=== PATIENT | female | born 1985 | race Caucasian/White ===

== ENCOUNTER 2017-01-04 18:28 | Emergency (ER) | payer BC, MEDICAID ==
[2017-01-04 18:36] VITALS: TEMP 98.3
[2017-01-04] MEDS ORDERED: SODIUM CHLORIDE 0.9% 1,000 ML IV ONE (18:51)
--- NOTE | 2017-01-04 18:58 | ED ---
Female Urogenital HPI - General Chief complaint: Vaginal Bleeding Stated complaint: menstruation x 11 days Time Seen by Provider: 01/04/17 18:43 Source: patient Mode of arrival: ambulatory Limitations: no limitations - History of Present Illness Initial comments: 31-year-old female patient presents to emergency department with chief complaint of heavy menstrual bleeding. Patient states that her period started 11 days ago, states that the bleeding has been heavier than normal. States that his become even heavier over the last 2 days. Patient states that she generally has irregular periods, her last period was at the end of August. States she generally has vaginal bleeding for 7 days when she gets her period. She states that she does have trouble with fertility and did have a miscarriage in the spring. She states that she has also had cramping in her pelvic region and lower back pain with this. He states that today she is feeling lightheaded , and is more weak. She states that she has been changing her tampon every hour. She states she did call her heel edge inker machine Dr. Gilbert who told her to present here for further evaluation. She also reports feeling chilled today. Patient denies any recent rash, fever, shortness breath, chest pain, nausea, vomiting, diarrhea, constipation, numbness, tingling, hematuria, dysuria, urinary urgency, urinary frequency, headache, visual changes, or any other complaints. Last Menstrual Period: 09/26/16 - Related Data Home Medications Medication Instructions Recorded Confirmed Acetaminophen Tab [Tylenol Tab] 650 mg PO Q6H PRN 01/04/17 01/04/17 Previous Rx's Medication Instructions Recorded Acetaminophen-Codeine 300-30mg 1 tab PO Q6H PRN #15 tablet 01/04/17 [Tylenol #3] Allergies Allergy/AdvReac Type Severity Reaction Status Date / Time No Known Allergies Allergy Verified 01/04/17 19:18 Review of Systems ROS Statement: Those systems with pertinent positive or pertinent negative responses have been documented in the HPI. ROS Other: All systems not noted in ROS Statement are negative. Past Medical History Past Medical History: No Reported History Additional Past Medical History / Comment(s): decreased function with gallbladder- gets pain when eatting, History of Any Multi-Drug Resistant Organisms: None Reported Past Surgical History: Hernia Repair Additional Past Surgical History / Comment(s): EGD,colonoscopy, wisdom teeth Past Anesthesia/Blood Transfusion Reactions: No Reported Reaction Past Psychological History: No Psychological Hx Reported Smoking Status: Never smoker Past Alcohol Use History: Rare Past Drug Use History: None Reported - Past Family History Father Family Medical History: No Reported History Mother Family Medical History: No Reported History Grandparents (maternal & paternal) Family Medical History: Cancer General Exam Limitations: no limitations General appearance: alert, in no apparent distress, other (This is a well- developed, well-nourished adult female patient in no acute distress. Vital signs upon presentation are temperature 98.3F, pulse 75, respirations 20, blood pressure 175/75, pulse ox 99% on room air.) ENT exam: Present: normal exam, normal oropharynx, mucous membranes moist Respiratory exam: Present: normal lung sounds bilaterally. Absent: respiratory distress, wheezes, rales, rhonchi, stridor Cardiovascular Exam: Present: regular rate, normal rhythm, normal heart sounds. Absent: systolic murmur, diastolic murmur, rubs, gallop, clicks GI/Abdominal exam: Present: soft, tenderness (Right and left pelvic tenderness.) , normal bowel sounds. Absent: distended, guarding, rebound, rigid External exam: Present: normal external exam. Absent: erythema, swelling, lacerations, ecchymosis Speculum exam: Present: normal speculum exam, vaginal bleeding (Mild vaginal bleeding, dark red blood) By manual exam: Present: adnexal tenderness (Right and left, mild.). Absent: cervical motion tenderness, adnexal mass, uterine enlargement, uterine tenderness Back exam: Present: normal inspection. Absent: CVA tenderness (R), CVA tenderness (L) Neurological exam: Present: alert, oriented X3, CN II-XII intact Psychiatric exam: Present: normal affect, normal mood Skin exam: Present: warm, dry, intact, normal color. Absent: rash Course Vital Signs 01/04/17 01/04/17 01/04/17 18:33 19:48 21:13 Temperature 98.3 F Pulse Rate 75 66 73 Respiratory 20 18 18 Rate Blood Pressure 175/75 139/86 121/69 O2 Sat by Pulse 99 97 97 Oximetry Medical Decision Making - Medical Decision Making 31-year-old female patient presented for evaluation of prolonged menstrual bleeding with increased cramping. Physical exam is unremarkable, pelvic examination did reveal vaginal bleeding, as well as some right adnexal tenderness. Labs were reviewed and were unremarkable. Patient's vital signs are stable here in the department. She was feeling somewhat better after receiving medications here. She'll be discharged home with Tylenol 3 for pain control. She is instructed to follow-up with her heel edge inker machine as soon as possible. She sees Dr. Gilbert. She is instructed to return here immediately for any new, worsening, or concerning symptoms. She verbalizes understanding and agrees with this plan. - Lab Data Result diagrams: 01/04/17 19:00 01/04/17 19:00 Lab Results 01/04/17 01/04/17 01/04/17 Range/Units 18:50 18:50 19:00 WBC 9.5 (3.8-10.6) k/uL RBC 4.89 (3.80-5.40) m/uL Hgb 14.8 (11.4-16.0) gm/dL Hct 44.3 (34.0-46.0) % MCV 90.6 (80.0-100.0) fL MCH 30.3 (25.0-35.0) pg MCHC 33.4 (31.0-37.0) g/dL RDW 12.6 (11.5-15.5) % Plt Count 308 (150-450) k/uL Neutrophils % 51 % Lymphocytes % 37 % Monocytes % 4 % Eosinophils % 5 % Basophils % 0 % Neutrophils # 4.9 (1.3-7.7) k/uL Lymphocytes # 3.5 (1.0-4.8) k/uL Monocytes # 0.4 (0-1.0) k/uL Eosinophils # 0.5 (0-0.7) k/uL Basophils # 0.0 (0-0.2) k/uL PT (9.0-12.0) sec INR (<1.2) APTT (22.0-30.0) sec Sodium (137-145) mmol/L Potassium (3.5-5.1) mmol/L Chloride (98-107) mmol/L Carbon Dioxide (22-30) mmol/L Anion Gap mmol/L BUN (7-17) mg/dL Creatinine (0.52-1.04) mg/dL Est GFR (MDRD) Af Amer (>60 ml/min/1.73 sqM) Est GFR (MDRD) Non-Af (>60 ml/min/1.73 sqM) Glucose (74-99) mg/dL Calcium (8.4-10.2) mg/dL Total Bilirubin (0.2-1.3) mg/dL AST (14-36) U/L ALT (9-52) U/L Alkaline Phosphatase (38-126) U/L Total Protein (6.3-8.2) g/dL Albumin (3.5-5.0) g/dL Urine Color Colorless Urine Appearance Clear (Clear) Urine pH 5.0 (5.0-8.0) Ur Specific [place] 1.005 (1.001-1.035) Urine Protein Negative (Negative) Urine Glucose (UA) Negative (Negative) Urine Ketones Negative (Negative) Urine Blood Small H (Negative) Urine Nitrite Negative (Negative) Urine Bilirubin Negative (Negative) Urine Urobilinogen <2.0 (<2.0) mg/dL Ur Leukocyte Esterase Negative (Negative) Urine RBC <1 (0-5) /hpf Urine WBC <1 (0-5) /hpf Ur Squamous Epith Cells 1 (0-4) /hpf Urine Mucus Rare H (None) /hpf Urine HCG, Qual Not Detected (Not Detectd) 01/04/17 01/04/17 Range/Units 19:00 19:00 WBC (3.8-10.6) k/uL RBC (3.80-5.40) m/uL Hgb (11.4-16.0) gm/dL Hct (34.0-46.0) % MCV (80.0-100.0) fL MCH (25.0-35.0) pg MCHC (31.0-37.0) g/dL RDW (11.5-15.5) % Plt Count (150-450) k/uL Neutrophils % % Lymphocytes % % Monocytes % % Eosinophils % % Basophils % % Neutrophils # (1.3-7.7) k/uL Lymphocytes # (1.0-4.8) k/uL Monocytes # (0-1.0) k/uL Eosinophils # (0-0.7) k/uL Basophils # (0-0.2) k/uL PT 10.2 (9.0-12.0) sec INR 1.0 (<1.2) APTT 25.7 (22.0-30.0) sec Sodium 141 (137-145) mmol/L Potassium 4.0 (3.5-5.1) mmol/L Chloride 106 (98-107) mmol/L Carbon Dioxide 24 (22-30) mmol/L Anion Gap 11 mmol/L BUN 16 (7-17) mg/dL Creatinine 0.70 (0.52-1.04) mg/dL Est GFR (MDRD) Af Amer >60 (>60 ml/min/1.73 sqM) Est GFR (MDRD) Non-Af >60 (>60 ml/min/1.73 sqM) Glucose 86 (74-99) mg/dL Calcium 9.9 (8.4-10.2) mg/dL Total Bilirubin 0.3 (0.2-1.3) mg/dL AST 35 (14-36) U/L ALT 57 H (9-52) U/L Alkaline Phosphatase 131 H (38-126) U/L Total Protein 8.0 (6.3-8.2) g/dL Albumin 4.3 (3.5-5.0) g/dL Urine Color Urine Appearance (Clear) Urine pH (5.0-8.0) Ur Specific [place] (1.001-1.035) Urine Protein (Negative) Urine Glucose (UA) (Negative) Urine Ketones (Negative) Urine Blood (Negative) Urine Nitrite (Negative) Urine Bilirubin (Negative) Urine Urobilinogen (<2.0) mg/dL Ur Leukocyte Esterase (Negative) Urine RBC (0-5) /hpf Urine WBC (0-5) /hpf Ur Squamous Epith Cells (0-4) /hpf Urine Mucus (None) /hpf Urine HCG, Qual (Not Detectd) - Radiology Data Radiology results: report reviewed, image reviewed Trans-abdominal ultrasound report reviewed in its entirety, impression by Dr. Durant shows no significant findings. Hypoechoic focus in the right adnexa is likely a cyst. Follow-up in 2-3 menstrual cycles could be performed performed. Disposition Clinical Impression: Dysfunctional uterine bleeding, Ovarian cyst Disposition: HOME SELF-CARE Condition: Good Instructions: Dysfunctional Uterine Bleeding (ED), Ovarian Cyst (ED) Additional Instructions: Increase fluids. Follow up with the MACHINE ASSISTANT for recheck as soon as possible. Return here immediately for any new, worsening, or concerning symptoms. Prescriptions: Acetaminophen-Codeine 300-30mg [Tylenol #3] 1 tab PO Q6H PRN #15 tablet PRN Reason: Pain Referrals: Kimberlyn Adair III, MD [Primary Care Provider] - 1-2 days Time of Disposition: 21:01
[2017-01-04 19:19] LABS: Appearance,Urine Clear (Clear); Bilirubin,Urine Negative (Negative); Glucose,Urine (UA) Negative (Negative); Ketones,Urine Negative (Negative); Leukocyte Esterase,Urine Negative (Negative); Mucus,Urine Rare /hpf; Nitrite,Urine Negative (Negative); Particle Count 215; Protein,Urine Negative (Negative); RBC,Urine <1 /hpf (0-5); Specific Gravity,Urine 1.005 (1.001-1.035); Squamous Epithelial Cell,Urine 1 /hpf (0-4); UA Billing (MACRO vs. MICRO) MICRO; Urobilinogen,Urine <2.0 mg/dL (<2.0); WBC,Urine <1 /hpf (0-5)
[2017-01-04 19:24] LABS: ALT 57 U/L (9-52); AST 35 U/L (14-36); Alkaline Phosphatase 131 U/L (38-126); Anion Gap 11 mmol/L; Basophils % (A) 0 %; Blood Urea Nitrogen 16 mg/dL (7-17); CH 30.1; CHCM 33.4; Calcium 9.9 mg/dL (8.4-10.2); Carbon Dioxide 24 mmol/L (22-30); Chloride 106 mmol/L (98-107); Eosinophils # (A) 0.5 k/uL (0-0.7); Eosinophils % (A) 5 %; Glucose 86 mg/dL (74-99); HCT 44.3 % (34.0-46.0); HDW 2.62; HGB 14.8 gm/dL (11.4-16.0); Luc # (Auto) 0.25; Luc % (Auto) 3; Lymphocytes # (A) 3.5 k/uL (1.0-4.8); Lymphocytes % (A) 37 %; MCH 30.3 pg (25.0-35.0); MCHC 33.4 g/dL (31.0-37.0); MCV 90.6 fL (80.0-100.0); Mean Platelet Volume 6.9; Monocytes # (A) 0.4 k/uL (0-1.0); Monocytes % (A) 4 %; Neutrophils # (A) 4.9 k/uL (1.3-7.7); Neutrophils % (A) 51 %; Non-African American GFR(MDRD) >60 (>60 ml/min/1.73 sqM); RBC 4.89 m/uL (3.80-5.40); RDW 12.6 % (11.5-15.5); Sodium 141 mmol/L (137-145); Total Bilirubin 0.3 mg/dL (0.2-1.3); WBC 9.5 k/uL (3.8-10.6); WBC (Perox) 8.75
[2017-01-04 19:28] LABS: Partial Thromboplastin Time 25.7 sec (22.0-30.0); Prothrombin Time 10.2 sec (9.0-12.0)
[2017-01-04] MEDS ORDERED: HYDROmorphone 1 MG/ML 1 ML SYRINGE IVP STA (19:32)
[2017-01-04] MEDS ORDERED: KETOROLAC 30 MG/ML 1 ML VIAL IVP STA (19:32)
[2017-01-04] MEDS ORDERED: ONDANSETRON 4 MG/2 ML VIAL IVP STA (19:32)
[2017-01-04 19:49] VITALS: RESP 18
--- NOTE | 2017-01-04 20:51 | US ---
EXAMINATION TYPE: US pelvic complete DATE OF EXAM: 01/04/2017 COMPARISON: NONE CLINICAL HISTORY: Heavy bleeding with lethargy and severe cramping per pt for 11 days. Pt states she has a history of irregular periods and cysts. TECHNIQUE: Transabdominal (TA) Date of LMP: 12/25/2016 EXAM MEASUREMENTS: Uterus: 8.8 x 3.4 x 4.7 cm Endometrial Stripe: 0.5 cm Right Ovary: 5.2 x 3.5 x 3.7 cm Left Ovary: 3.3 x 2.4 x 2.8 cm Limited due to bowel gas. 1. Uterus: Anteverted Appears wnl 2. Endometrium: Appears wnl 3. Right Ovary: Appears to have hypoechoic area measuring approximately 2.9 x 4.0 x 3.[address] Follow up in 2-3 menstrual cycles is recommended if warranted. 4. Left Ovary: Appears wnl Spectral, color and waveform doppler imaging shows good arterial and venous flow within the ovaries ; there is no evidence for ovarian torsion. 5. Bilateral Adnexa: Appear wnl 6. Posterior cul-de-sac: Traces of free fluid IMPRESSION: No significant findings. Hypoechoic focus in the right adnexa is likely a cyst. Follow-up in 2-3 menstrual cycles could be performed if warranted.
[2017-01-04] MEDS ORDERED: ACET/COD 300 MG/30 MG STARTER PACK 6 TAB BTL PO STA (21:04)
[2017-01-04 21:14] VITALS: BP 121/69; PULSE 73
== END 2017-01-04 21:23 | disposition home or self-care (01) ==
LOC: EC 18:28
DX: N93.8 Other specified abnormal uterine and vaginal bleeding (principal); N83.201 Unspecified ovarian cyst, right side; M54.5 Low back pain
CPT/HCPCS: 99284 ×2; 96374 ×2; 96375 ×3; 96361 ×3; 36415; 80053; 85025; 85610; 85730; 81001; 81025; 93975; 76856; J2405; J1885; J1170

== ENCOUNTER → 2017-08-29 | Outpatient (CLI) | payer BC ==
--- NOTE | 2017-08-29 07:44 | MR ---
EXAMINATION TYPE: MR knee LT wo con DATE OF EXAM: 08/29/2017 COMPARISON: NONE HISTORY: Left knee pain TECHNIQUE: Multiplanar, multisequence imaging of the knee is performed without IV contrast. FINDINGS: MEDIAL MENISCUS: Mild increased signals within the posterior horn of the medial meniscus compatible s ome internal derangement. No communication with the articular surface is evident. Anterior horn media l meniscus appears unremarkable. LATERAL MENISCUS: Anterior and posterior horns are intact without tear. CRUCIATE LIGAMENTS: The anterior and posterior cruciate ligaments are intact and unremarkable. COLLATERAL LIGAMENTS: The medial collateral ligament and lateral collateral ligament complex are inta ct and unremarkable. EXTENSOR MECHANISM: Visualized quadriceps and patellar tendons are intact. EFFUSION: No significant suprapatellar joint effusion. POPLITEAL CYST: No popliteal cyst is evident. TRICOMPARTMENT SPACES: Preserved CARTILAGE: Preserved BONE MARROW SIGNAL: No focal abnormal marrow signal is appreciated. OTHER: No additional significant abnormality is appreciated. IMPRESSION: Mild grade 1 internal derangement posterior horn medial meniscus.
== END ==
LOC: RADMRIMAIN 06:40
PROVIDERS: ATTEND Orthopaedic Surgery
DX: M23.92 Unspecified internal derangement of left knee (principal)

== ENCOUNTER 2018-09-15 21:25 | Emergency (ER) | payer BC ==
--- NOTE | 2018-09-15 21:35 | ED ---
Female Urogenital HPI - General Chief complaint: Urogenital Stated complaint: Poss Miscarriage Time Seen by Provider: 09/15/18 21:35 Source: patient, RN notes reviewed, old records reviewed Mode of arrival: ambulatory Limitations: no limitations - History of Present Illness Initial comments: This is a 33-year-old female the ER for evaluation. Patient resents today for evaluation regarding IUP. Patient states she is but has had recent pain and bleeding patient also having mild cramping. No other significant complaints. Patient is a MD Complaint: vaginal bleeding (In ) -: hour(s) Location: suprapubic (Cramping) Radiation: non-radiating, LLQ Severity scale (1-10): 2 Quality: cramping Consistency: constant Improves with: none Worsens with: none Last Menstrual Period: 07/06/18 Patient : No Associated Symptoms: denies other symptoms - Related Data Sexually active: No Home Medications Medication Instructions Recorded Confirmed Multivitamins, Thera [Multivitamin 1 tab PO DAILY 09/15/18 09/15/18 (formulary)] Allergies Allergy/AdvReac Type Severity Reaction Status Date / Time No Known Allergies Allergy Verified 09/15/18 21:41 Review of Systems ROS Statement: Those systems with pertinent positive or pertinent negative responses have been documented in the HPI. ROS Other: All systems not noted in ROS Statement are negative. Past Medical History Past Medical History: No Reported History Additional Past Medical History / Comment(s): decreased function with gallbladder- gets pain when eatting, History of Any Multi-Drug Resistant Organisms: None Reported Past Surgical History: Hernia Repair Additional Past Surgical History / Comment(s): EGD,colonoscopy, wisdom teeth Past Anesthesia/Blood Transfusion Reactions: No Reported Reaction Past Psychological History: No Psychological Hx Reported Smoking Status: Never smoker Past Alcohol Use History: Rare Past Drug Use History: None Reported - Past Family History Father Family Medical History: No Reported History Mother Family Medical History: No Reported History Grandparents (maternal & paternal) Family Medical History: Cancer General Exam Limitations: no limitations General appearance: alert, in no apparent distress Head exam: Present: atraumatic, normocephalic, normal inspection Eye exam: Present: normal appearance, PERRL, EOMI. Absent: scleral icterus, conjunctival injection, periorbital swelling ENT exam: Present: normal exam, mucous membranes moist Neck exam: Present: normal inspection. Absent: tenderness, meningismus, lymphadenopathy Respiratory exam: Present: normal lung sounds bilaterally. Absent: respiratory distress, wheezes, rales, rhonchi, stridor Cardiovascular Exam: Present: regular rate, normal rhythm, normal heart sounds. Absent: systolic murmur, diastolic murmur, rubs, gallop, clicks GI/Abdominal exam: Present: soft, normal bowel sounds. Absent: distended, tenderness, guarding, rebound, rigid Extremities exam: Present: normal inspection, full ROM, normal capillary refill. Absent: tenderness, pedal edema, joint swelling, calf tenderness Back exam: Present: normal inspection Neurological exam: Present: alert, oriented X3, CN II-XII intact Psychiatric exam: Present: normal affect, normal mood Skin exam: Present: warm, dry, intact, normal color. Absent: rash Course Vital Signs 09/15/18 21:29 Temperature 98.0 F Pulse Rate 85 Respiratory 18 Rate Blood Pressure 131/73 O2 Sat by Pulse 100 Oximetry - Reevaluation(s) Reevaluation #1: 09/15/18 23:47 Medical record is reviewed Reevaluation #2: 09/15/18 23:47 Patient discussed regarding symptoms and findings. Questions answered Medical Decision Making - Medical Decision Making 3 female the ER for evaluation of vaginal bleeding in . Patient is significant positive IUP. Can be discharged home - Lab Data Lab Results 09/15/18 09/15/18 09/15/18 Range/Units 22:10 22:10 22:10 HCG, Quant 68335.9 mIU/mL Urine Color Yellow Urine Appearance Clear (Clear) Urine pH 5.0 (5.0-8.0) Ur Specific [place] 1.028 (1.001-1.035) Urine Protein Negative (Negative) Urine Glucose (UA) Negative (Negative) Urine Ketones Negative (Negative) Urine Blood Negative (Negative) Urine Nitrite Negative (Negative) Urine Bilirubin Negative (Negative) Urine Urobilinogen <2.0 (<2.0) mg/dL Ur Leukocyte Esterase Negative (Negative) Urine HCG, Qual Detected (Not Detectd) - Radiology Data Radiology results: report reviewed (Ultrasound shows positive IUP), image reviewed Disposition Clinical Impression: Vaginal bleeding during , Threatened Disposition: HOME SELF-CARE Condition: Good Instructions (If sedation given, give patient instructions): Threatened Miscarriage (ED) Is patient prescribed a controlled substance at d/c from ED?: No Referrals: Kimberlyn Adair III, MD [Primary Care Provider] - 1-2 days
[2018-09-15 22:39] LABS: Appearance,Urine Clear (Clear); Bilirubin,Urine Negative (Negative); Blood,Urine Negative (Negative); Color,Urine Yellow; Glucose,Urine (UA) Negative (Negative); Ketones,Urine Negative (Negative); Leukocyte Esterase,Urine Negative (Negative); Nitrite,Urine Negative (Negative); Protein,Urine Negative (Negative); Specific Gravity,Urine 1.028 (1.001-1.035); Urobilinogen,Urine <2.0 mg/dL (<2.0)
--- NOTE | 2018-09-15 23:27 | US ---
EXAM: US First Trimester, Transabdominal CLINICAL HISTORY: ITS.REASON US Reason: Pain TECHNIQUE: Real-time transabdominal obstetrical ultrasound of the maternal pelvis and a first trimester with image documentation. COMPARISON: None FINDINGS: Uterus: Measures 10.3 x 6.7 x 9.0 cm. Gestational sac identified within the endometrial cavity. Small subchorionic hemorrhage measuring 1.2 x 1. 3 x 1.2 cm. An embryonic pole is identified. [place]-rump length measures 3.01 cm. heart rate 175 bpm. Cervix is long and closed. Ovaries: The right ovary measures 4.0 x 2.7 x 2.7 cm. Exophytic right ovarian versus paraovarian cyst measuring 4.0 x 2.5 x 2.8 cm. The left ovary measures 3.4 x 1.8 x 2.3 cm. The ovaries demonstrate normal color flow. Other: Question minimal complex fluid in the cul-de-sac. No adnexal mass. LMP: 07/01/2018 GA by LMP: 10 weeks 6 days ANA by LMP: 04/07/2019 Average ultrasound age: 9 weeks 6 days ANA by ultrasound: 04/14/2019 IMPRESSION: Single intrauterine with heart rate of 175 bpm. Average ultrasound age of 9 weeks 6 days. Small subchorionic hemorrhage measuring up to 1.3 cm.
[2018-09-16 00:04] VITALS: BP 130/80; PULSE 81; RESP 16; TEMP 98.2
== END 2018-09-16 00:03 | disposition home or self-care (01) ==
LOC: EC 21:25
DX: O20.0 Threatened abortion (principal); Z3A.09 9 weeks gestation of pregnancy
CPT/HCPCS: 36415; 76801; 81003; 81025; 84702; 99284

== ENCOUNTER → 2018-12-25 | Outpatient (CLI) | payer BC ==
--- NOTE | 2018-12-25 19:36 | MR ---
EXAMINATION TYPE: MR knee RT wo con DATE OF EXAM: 12/25/2018 COMPARISON: None HISTORY: Pain in right knee TECHNIQUE: Multiplanar, multisequence imaging of the right knee is performed without IV contrast. FINDINGS: There is increased signal in the large area of the medial femoral condyle on the T2 images in the ant erior aspect. There is a patchy mild area of increased signal in the lateral aspect lateral tibial co ndyle. The collateral ligaments are intact. The anterior and posterior cruciate ligaments are intact. There is mild knee joint effusion. The medial and lateral menisci appear intact. There is no evidenc e of meniscal tear. There is small area of edema in the subchondral patella. This measures 5 mm. IMPRESSION: Small joint effusion. No evidence of ligamentous or meniscal tear. Edema in the medial femoral condyle and lateral tibial condyle consistent with bone bruise. No fractu re line seen.
== END | disposition home or self-care (01) ==
LOC: RADMRIMAIN 18:34
PROVIDERS: ATTEND Orthopaedic Surgery
DX: M25.461 Effusion, right knee (principal)

== ENCOUNTER 2019-02-07 20:47 | Outpatient (CLI) | payer BC ==
[2019-02-07 22:14] VITALS: BP 129/83; PULSE 85; RESP 18; TEMP 98.7
--- NOTE | 2019-03-20 11:15 | P.MSEPDOC ---
Presenting Problems - Arrival Data Date of Arrival on Unit: 02/07/19 Time of Arrival on Unit: 20:47 Mode of Transport: Ambulatory - Complaint OB-Reason for Admission/Chief Complaint: Rule Out PROM Comment: pt presents to triage with complaints of cramping off and on last few days,. wettness in underware that started yesterday evening and continues into today with. multiple changes of underware and achiness in both legs that started about 3 days ago in. hips and now is entire legs with super tight muscles and achiness Medical History - Information : 2 Para: 1 Term: 1 : 0 Abortions: Spontaneous or Elective: 0 Number of Living Children: 1 - Gestational Age Gestational Age by ANA (wks/days): 30 Weeks and 4 Days Review of Systems - Review of Systems Constitutional: No problems Breast: No problems ENT: No problems Cardiovascular: No problems Respiratory: No problems Gastrointestinal: No problems Genitourinary: No problems Musculoskeletal: No problems Neurological: No problems Skin: No problems Vital Signs - Temperature Temperature: 98.7 F - Pulse Right Radial Pulse Rate: 85 Pulse Assessment Method: Automatic Cuff - Respirations Respiratory Rate: 18 Oxygen Delivery Method: Room Air O2 Sat by Pulse Oximetry: 98 - Blood Pressure Right Arm Blood Pressure: 129/83 Blood Pressure Mean: 98 Blood Pressure Source: Automatic Cuff Medical Screen Scoring (Pre) - Cervical Exam Dilation: 0 cm = 0 Membranes: Intact - Uterine Contractions Frequency: N/A Duration: N/A Intensity: N/A - Maternal Vital Signs Maternal Temperature: N/A Maternal Blood Pressure: N/A Signs of Preeclampsia: N/A Maternal Respirations: N/A - Maternal Trauma Maternal Trauma: N/A - Assessment - Baby A Baseline FHR: 145 Heart Rate - NICHD Category: Category I (Normal) = 0 NST: Reactive Position: N/A, Non-vertex & not laboring = 3 Station: N/A - Total Score - Baby A Total Score - Baby A: 3 - Total Score - Baby B Total Score - Baby B: 0 - Total Score - Baby C Total Score - Baby C: 0 - Level of Risk - Baby A Level of Risk - Baby A: N/A - Level of Risk - Baby B Level of Risk - Baby B: Low (0-5) - Level of Risk - Baby C Level of Risk - Baby C: Low (0-5) Physician Notification (Pre) - Physician Notified Physician Notified Date: 02/07/19 Physician Notified Time: 20:40 New Order Received: Yes - Notification Comment Comment: Dr Laboy called with report pts reasons for visit, negative amnisure, Cat 1. fhr, reactive nst maternal vitals wnl, pain 0, cervix closed. pt has appt tomorrow with. Dr Gilbert. Discharge order obtained Disposition - Disposition OB Disposition: Discharge to home Discharge Date: 02/07/19 Discharge Time: 21:45 I agree with the RN Medical Screening Exam: Yes Risk & Benefit of care provided described in d/c instruction: Yes Diagnosis: RELATED CONDITIONS, UNSPECIFIED, THIRD TRIMESTER
== END 2019-02-07 21:45 | disposition home or self-care (01) ==
LOC: FBPOP 20:47
PROVIDERS: ATTEND Obstetrics & Gynecology
DX: O26.93 Pregnancy related conditions, unspecified, third trimester (principal); Z3A.30 30 weeks gestation of pregnancy
CPT/HCPCS: 59025; 99213

== ENCOUNTER → 2019-02-23 | Outpatient (CLI) | payer BC ==
--- NOTE | 2019-02-23 10:40 | US ---
EXAMINATION TYPE: US venous doppler duplex LE DATE OF EXAM: 02/23/2019 10:28 AM COMPARISON: NONE CLINICAL HISTORY: M79.662,Pain in left lower leg M79.661 Pain in rig. Patient is 33 weeks wi th bilateral calf pain and right anterior lower leg pain. SIDE PERFORMED: Bilateral TECHNIQUE: The lower extremity deep venous system is examined utilizing real time linear array sonog papito with graded compression, doppler sonography and color-flow sonography. VESSELS IMAGED: Common Femoral Vein Deep Femoral Vein Greater Saphenous Vein * Femoral Vein Popliteal Vein Small Saphenous Vein * Proximal Calf Veins (* superficial vessels) Right Leg: Negative for DVT Left Leg: Negative for DVT IMPRESSION: No distinct abnormality identified at this time.
== END | disposition home or self-care (01) ==
LOC: RADUSWWP 09:46
PROVIDERS: ATTEND Obstetrics & Gynecology
DX: M79.662 Pain in left lower leg (principal); M79.661 Pain in right lower leg
CPT/HCPCS: 93970

== ENCOUNTER 2019-03-08 15:28 | Outpatient (CLI) | payer BC ==
[2019-03-08 16:45] VITALS: BP 132/69; PULSE 91; RESP 16; TEMP 96.6
--- NOTE | 2019-03-22 10:01 | P.MSEPDOC ---
Presenting Problems - Arrival Data Date of Arrival on Unit: 03/08/19 Time of Arrival on Unit: 15:28 Mode of Transport: Ambulatory - Complaint OB-Reason for Admission/Chief Complaint: Possible Onset of Labor, Decreased Movement Medical History - Information : 2 Para: 1 Term: 1 : 0 Abortions: Spontaneous or Elective: 0 Number of Living Children: 1 - Gestational Age Gestational Age by ANA (wks/days): 35 Weeks and 5 Days Review of Systems - Review of Systems Constitutional: No problems Breast: No problems ENT: No problems Cardiovascular: No problems Respiratory: No problems Gastrointestinal: No problems Genitourinary: No problems Musculoskeletal: No problems Neurological: No problems Skin: No problems Vital Signs - Temperature Temperature: 96.6 F Temperature Source: Temporal Artery Scan - Pulse Right Sitting Pulse Rate: 91 Pulse Assessment Method: Automatic Cuff - Respirations Respiratory Rate: 16 Oxygen Delivery Method: Room Air - Blood Pressure Right Arm Blood Pressure: 132/69 Blood Pressure Mean: 90 Blood Pressure Source: Automatic Cuff Medical Screen Scoring (Pre) - Cervical Exam Dilation: 1-3 cm = 1 Membranes: Intact - Uterine Contractions Frequency: N/A Duration: N/A Intensity: N/A - Maternal Vital Signs Maternal Temperature: N/A Maternal Blood Pressure: N/A Signs of Preeclampsia: N/A Maternal Respirations: N/A - Maternal Trauma Maternal Trauma: N/A - Assessment - Baby A Baseline FHR: 140 Heart Rate - NICHD Category: Category I (Normal) = 0 NST: Reactive Position: N/A Station: N/A - Total Score - Baby A Total Score - Baby A: 1 - Total Score - Baby B Total Score - Baby B: 1 - Total Score - Baby C Total Score - Baby C: 1 - Level of Risk - Baby A Level of Risk - Baby A: Low (0-5) - Level of Risk - Baby B Level of Risk - Baby B: Low (0-5) - Level of Risk - Baby C Level of Risk - Baby C: Low (0-5) Physician Notification (Pre) - Physician Notified Physician Notified Date: 03/08/19 Physician Notified Time: 16:26 New Order Received: Yes (d/c home) Disposition - Disposition OB Disposition: Discharge to home Discharge Date: 03/08/19 Discharge Time: 16:30 I agree with the RN Medical Screening Exam: Yes Risk & Benefit of care provided described in d/c instruction: Yes Diagnosis: DECREASED MOVEMENTS, THIRD TRIMESTER, UNSP
== END 2019-03-08 16:30 | disposition home or self-care (01) ==
LOC: FBPOP 15:28
PROVIDERS: ATTEND Obstetrics & Gynecology
DX: O36.8190 Decreased fetal movements, unspecified trimester, not applicable or unspecified (principal); Z3A.36 36 weeks gestation of pregnancy
CPT/HCPCS: 59025; 84112; 99213

== ENCOUNTER 2019-03-15 11:44 | Outpatient (CLI) | payer BC ==
[2019-03-15 13:57] VITALS: BP 135/78; PULSE 88; RESP 16; TEMP 96.8
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
== END 2019-03-15 13:40 | disposition home or self-care (01) ==
LOC: FBPOP 11:44
PROVIDERS: ATTEND Obstetrics & Gynecology
DX: O26.893 Other specified pregnancy related conditions, third trimester (principal)
CPT/HCPCS: 59025; 84112; 99213

== ENCOUNTER 2020-02-16 19:22 | Emergency (ER) | payer BC ==
[2020-02-16] MEDS ORDERED: IPRATROPIUM-ALBUTEROL 3 ML NEB INHALATION STA (22:06)
--- NOTE | 2020-02-16 22:20 | ED ---
General Adult HPI - General Chief complaint: Chest Pain Stated complaint: + covid,heavy chest Time Seen by Provider: 02/16/20 21:29 Source: patient Mode of arrival: ambulatory Limitations: no limitations - History of Present Illness Initial comments: 34-year-old female patient presents to the emergency department today for evaluation of chest heaviness. Patient states that she was diagnosed with COVID-19 on Friday. States that she started having symptoms including fever and nausea since Friday. She states that today she started to experience chest h eaviness. She denies any cough or shortness of breath. States her fever broke today. Denies history of smoking. Patient denies any recent rash, abdominal pain, nausea, vomiting, diarrhea, constipation, back pain, numbness, tingling, dizziness, weakness, hematuria, dysuria, urinary urgency, urinary frequency, headache, visual changes, or any other complaints. - Related Data Home Medications Medication Instructions Recorded Confirmed Multivitamins, Thera [Multivitamin 1 tab PO DAILY 09/15/18 02/16/20 (formulary)] Previous Rx's Medication Instructions Recorded Albuterol Sulfate [Proair Hfa] 1 - 2 puff INHALATION Q6HR PRN #1 02/16/20 inhaler Allergies Allergy/AdvReac Type Severity Reaction Status Date / Time No Known Allergies Allergy Verified 02/16/20 23:06 Review of Systems ROS Statement: Those systems with pertinent positive or pertinent negative responses have been documented in the HPI. ROS Other: All systems not noted in ROS Statement are negative. Past Medical History Past Medical History: No Reported History Additional Past Medical History / Comment(s): decreased function with gallbladder- gets pain when eatting, knee pain History of Any Multi-Drug Resistant Organisms: None Reported Past Surgical History: Hernia Repair Additional Past Surgical History / Comment(s): EGD,colonoscopy, wisdom teeth Past Anesthesia/Blood Transfusion Reactions: No Reported Reaction Past Psychological History: No Psychological Hx Reported Smoking Status: Never smoker Past Alcohol Use History: Rare Past Drug Use History: None Reported - Past Family History Father Family Medical History: No Reported History Mother Family Medical History: No Reported History Grandparents (maternal & paternal) Family Medical History: Cancer General Exam Limitations: no limitations General appearance: alert, in no apparent distress, other (This is a well- developed, well-nourished adult female patient in no acute distress. Vital signs upon presentation are temperature 97.6F, pulse 88, respirations 24, blood pressure 165/91, pulse ox 100% on room air.) Eye exam: Present: normal appearance, PERRL, EOMI. Absent: scleral icterus, conjunctival injection, periorbital swelling ENT exam: Present: normal exam, normal oropharynx, mucous membranes moist Respiratory exam: Present: normal lung sounds bilaterally. Absent: respiratory distress, wheezes, rales, rhonchi, stridor Cardiovascular Exam: Present: regular rate, normal rhythm, normal heart sounds. Absent: systolic murmur, diastolic murmur, rubs, gallop, clicks Neurological exam: Present: alert, oriented X3, CN II-XII intact Psychiatric exam: Present: normal affect, normal mood Skin exam: Present: warm, dry, intact, normal color. Absent: rash Course Vital Signs 02/16/20 02/16/20 02/16/20 19:25 22:00 22:20 Temperature 97.6 F Pulse Rate 88 65 72 Respiratory 24 18 18 Rate Blood Pressure 165/91 157/86 O2 Sat by Pulse 100 99 Oximetry 02/16/20 02/16/20 22:26 23:25 Temperature 98.9 F Pulse Rate 74 70 Respiratory 18 18 Rate Blood Pressure 146/93 O2 Sat by Pulse 97 Oximetry Medical Decision Making - Medical Decision Making 34-year-old female patient recently diagnosed with COVID-19 presents to the emergency department today for evaluation of chest heaviness. Physical examination is unremarkable. Lungs are clear to auscultation with good air movement. Vital signs are within normal ranges oxygen saturation is 99% on room air. She denies shortness of breath or cough. Chest x-ray was obtained and was negative. I did discuss findings and results with the patient. She did receive a DuoNeb treatment here and states it did seem to improve her symptoms. She'll be discharged with a prescription for pro-air. She is instructed to follow-up with her primary care physician for recheck in 1-2 days. Return parameters discussed in detail. She verbalizes understanding and agrees with this plan. - Radiology Data Radiology results: report reviewed, image reviewed 1 year x-ray of the chest is obtained. Report was reviewed in its entirety. Impression by Dr. Ferrell shows normal chest. Disposition Clinical Impression: Chest heaviness, COVID-19 Disposition: HOME SELF-CARE Condition: Good Instructions (If sedation given, give patient instructions): Chest Pain (ED), Viral Syndrome (ED) Additional Instructions: Use inhaler as directed. Follow-up with your primary care physician for recheck in 1-2 days. Return to the emergency department immediately for any new, worsening, or concerning symptoms. Prescriptions: Albuterol Sulfate [Proair Hfa] 1 - 2 puff INHALATION Q6HR PRN #1 inhaler PRN Reason: Shortness Of Breath Is patient prescribed a controlled substance at d/c from ED?: No Referrals: Kimberlyn Adair III, MD [Primary Care Provider] - 1-2 days Time of Disposition: 23:10
[2020-02-16 22:21] VITALS: RESP 18
--- NOTE | 2020-02-16 22:37 | XR ---
EXAMINATION TYPE: XR chest 1V portable DATE OF EXAM: 02/16/2020 COMPARISON: NONE HISTORY: Short of breath TECHNIQUE: FINDINGS: Heart and mediastinum are normal. Lungs are clear. Diaphragm is normal. Bony thorax appears normal. IMPRESSION: Normal chest.
[2020-02-16 23:28] VITALS: BP 146/93; PULSE 70; TEMP 98.9
== END 2020-02-16 23:27 | disposition home or self-care (01) ==
LOC: EC 19:22
DX: U07.1 COVID-19 (principal)
CPT/HCPCS: 71045; 93005; 94640; 99285

== ENCOUNTER 2020-12-01 16:33 | Observation (INO) | payer BC ==
[2020-12-01 19:35] LABS: Basophils # (A) 0.1 k/uL (0-0.2); Basophils % (A) 0 %; Eosinophils # (A) 1.7 k/uL (0-0.7); Eosinophils % (A) 10 %; HCT 39.8 % (34.0-46.0); HGB 13.3 gm/dL (11.4-16.0); Lymphocytes # (A) 2.7 k/uL (1.0-4.8); Lymphocytes % (A) 16 %; MCH 30.1 pg (25.0-35.0); MCHC 33.4 g/dL (31.0-37.0); Monocytes # (A) 0.5 k/uL (0-1.0); Monocytes % (A) 3 %; Neutrophils # (A) 12.1 k/uL (1.3-7.7); Neutrophils % (A) 70 %; Platelet Count 482 k/uL (150-450); RBC 4.43 m/uL (3.80-5.40); RDW 13.1 % (11.5-15.5); WBC 17.3 k/uL (3.8-10.6)
[2020-12-01 19:44] LABS: ALT 19 U/L (4-34); AST 20 U/L (14-36); African American GFR (CKD) >90 (>60 ml/min/1.73 sqM); Albumin 3.9 g/dL (3.5-5.0); Alkaline Phosphatase 126 U/L (38-126); Anion Gap 9 mmol/L; Blood Urea Nitrogen 12 mg/dL (7-17); Calcium 9.3 mg/dL (8.4-10.2); Carbon Dioxide 27 mmol/L (22-30); Chloride 102 mmol/L (98-107); Glucose 111 mg/dL (74-99); Non-African American GFR(CKD) >90 (>60 ml/min/1.73 sqM); Potassium 4.1 mmol/L (3.5-5.1); Sodium 138 mmol/L (137-145); Total Bilirubin 0.2 mg/dL (0.2-1.3); Total Protein 7.1 g/dL (6.3-8.2)
[2020-12-01] MEDS ORDERED: RX INFO: IV CONTRAST WAS GIVEN 1 EACH MISC MISCELLANE PRN (20:05)
--- NOTE | 2020-12-01 20:50 | CT ---
EXAMINATION TYPE: CT chest w con DATE OF EXAM: 12/01/2020 COMPARISON: None HISTORY: Cough CT DLP: mGycm Automated exposure control for dose reduction was used. CONTRAST: Performed , patient injected with mL of . The contrast was Isovue 100 mL. There are patchy areas of infiltrate in both lungs. These are coalescent infiltrates that measure up to 3 cm. There is a 6.5 x 3 cm patch of consolidation at the right posterior lung base. I see no cavi tation. There is no mediastinal adenopathy. There is no pleural effusion. There is no pericardial effusion. H eart size is normal. There are no hilar masses. IMPRESSION: Bilateral patchy areas of airspace infiltrate. This is likely related to infectious disease. No cavit ation seen. Also consider septic emboli.
--- NOTE | 2020-12-01 22:41 | ED ---
General Adult HPI - General Chief complaint: Upper Respiratory Infection Stated complaint: lung mass, respiratory Time Seen by Provider: 12/01/20 18:10 Source: patient Mode of arrival: ambulatory Limitations: no limitations - History of Present Illness Initial comments: 35-year-old previously healthy female presents emergency room with reported abnormal chest x-ray. Patient states that she's had a cough for 3 weeks. She has been using Mucinex and Delsym at home without improvement. She went to the urgent care today where chest x-ray was performed. They told her that she had masses on her lungs and therefore needed to come into the emergency room for a CAT scan. She denies productive cough. No history of intravenous drug use. Denies history of endocarditis ot myocarditis. She denies shortness of breath. No chest pain. No fevers or chills. No sick contacts of similar symptoms. Did have Covid back in January. No concern for . No other alleviating, precipitating or modifying factors - Related Data Home Medications Medication Instructions Recorded Confirmed Multivitamins, Thera [Multivitamin 1 tab PO DAILY 09/15/18 12/01/20 (formulary)] guaiFENesin [Mucinex] 600 mg PO BID 12/01/20 12/01/20 Allergies Allergy/AdvReac Type Severity Reaction Status Date / Time No Known Allergies Allergy Verified 12/01/20 22:36 Review of Systems ROS Statement: Those systems with pertinent positive or pertinent negative responses have been documented in the HPI. ROS Other: All systems not noted in ROS Statement are negative. Past Medical History Past Medical History: No Reported History Additional Past Medical History / Comment(s): decreased function with gallbladder- gets pain when eatting, knee pain History of Any Multi-Drug Resistant Organisms: None Reported Past Surgical History: Hernia Repair Additional Past Surgical History / Comment(s): EGD,colonoscopy, wisdom teeth Past Anesthesia/Blood Transfusion Reactions: No Reported Reaction Past Psychological History: No Psychological Hx Reported Smoking Status: Never smoker Past Alcohol Use History: Rare Past Drug Use History: None Reported - Past Family History Father Family Medical History: No Reported History Mother Family Medical History: No Reported History Grandparents (maternal & paternal) Family Medical History: Cancer General Exam Limitations: no limitations General appearance: alert, in no apparent distress Head exam: Present: atraumatic, normocephalic, normal inspection Eye exam: Present: normal appearance, PERRL, EOMI. Absent: scleral icterus, conjunctival injection, periorbital swelling ENT exam: Present: normal exam, mucous membranes moist Neck exam: Present: normal inspection. Absent: tenderness, meningismus, lymphadenopathy Respiratory exam: Present: normal lung sounds bilaterally, other (frequent bronchospasm). Absent: respiratory distress, wheezes, rales, rhonchi, stridor Cardiovascular Exam: Present: regular rate, normal rhythm, normal heart sounds. Absent: systolic murmur, diastolic murmur, rubs, gallop, clicks GI/Abdominal exam: Present: soft, normal bowel sounds. Absent: distended, tenderness, guarding, rebound, rigid Extremities exam: Present: normal inspection, full ROM, normal capillary refill. Absent: tenderness, pedal edema, joint swelling, calf tenderness Back exam: Present: normal inspection Neurological exam: Present: alert, oriented X3, CN II-XII intact Psychiatric exam: Present: normal affect, normal mood Skin exam: Present: warm, dry, intact, normal color. Absent: rash Course Vital Signs 12/01/20 12/01/20 12/01/20 18:10 19:33 22:17 Temperature 97.9 F 98.6 F Pulse Rate 91 86 Respiratory 22 18 18 Rate Blood Pressure 154/94 146/83 O2 Sat by Pulse 99 97 Oximetry EKG Findings - EKG Comments: EKG Findings:: EKG demonstrates a normal sinus rhythm with a ventricular rate of 82. PA interval 144. QRS 76. QTC of 457. No acute ST segment elevations or depressions concerning for ischemic changes Medical Decision Making - Medical Decision Making Upon arrival patient is placed in the hallway . Thorough history and physical exam was performed. Laboratory studies were conducted. White count is 17.3. CT of the patient's chest is performed with contrast which demonstrates bilateral patchy airspace infiltrate. Consider septic emboli. Due to patient's elevated white count and abnormal CT results blood cultures are obtained and the patient is initiated on cefepime and Vanco. Recommend hospitalization for pulmonology consultation for which the patient did agree to. Spoke with Wilma from [facility] who agreed to admit the patient. Patient taken to the floor in stable condition. - Lab Data Result diagrams: 12/02/20 06:04 12/02/20 06:04 Lab Results 0912/01/20 12/01/20 Range/Units 19:23 19:23 23:49 WBC 17.3 H (3.8-10.6) k/uL RBC 4.43 (3.80-5.40) m/uL Hgb 13.3 (11.4-16.0) gm/dL Hct 39.8 (34.0-46.0) % MCV 90.0 (80.0-100.0) fL MCH 30.1 (25.0-35.0) pg MCHC 33.4 (31.0-37.0) g/dL RDW 13.1 (11.5-15.5) % Plt Count 482 H (150-450) k/uL MPV 7.0 Neutrophils % 70 % Lymphocytes % 16 % Monocytes % 3 % Eosinophils % 10 % Basophils % 0 % Neutrophils # 12.1 H (1.3-7.7) k/uL Lymphocytes # 2.7 (1.0-4.8) k/uL Monocytes # 0.5 (0-1.0) k/uL Eosinophils # 1.7 H (0-0.7) k/uL Basophils # 0.1 (0-0.2) k/uL Sodium 138 (137-145) mmol/L Potassium 4.1 (3.5-5.1) mmol/L Chloride 102 (98-107) mmol/L Carbon Dioxide 27 (22-30) mmol/L Anion Gap 9 mmol/L BUN 12 (7-17) mg/dL Creatinine 0.56 (0.52-1.04) mg/dL Est GFR (CKD-EPI)AfAm >90 (>60 ml/min/1.73 sqM) Est GFR (CKD-EPI)NonAf >90 (>60 ml/min/1.73 sqM) Glucose 111 H (74-99) mg/dL Calcium 9.3 (8.4-10.2) mg/dL Total Bilirubin 0.2 (0.2-1.3) mg/dL AST 20 (14-36) U/L ALT 19 (4-34) U/L Alkaline Phosphatase 126 (38-126) U/L Troponin I <0.012 (0.000-0.034) ng/mL C-Reactive Protein (<1.0) mg/dL Total Protein 7.1 (6.3-8.2) g/dL Albumin 3.9 (3.5-5.0) g/dL Urine HCG, Qual (Not Detectd) Coronavirus (PCR) (Not Detectd) 12/01/20 12/01/20 12/01/20 Range/Units 23:49 23:49 23:49 WBC (3.8-10.6) k/uL RBC (3.80-5.40) m/uL Hgb (11.4-16.0) gm/dL Hct (34.0-46.0) % MCV (80.0-100.0) fL MCH (25.0-35.0) pg MCHC (31.0-37.0) g/dL RDW (11.5-15.5) % Plt Count (150-450) k/uL MPV Neutrophils % % Lymphocytes % % Monocytes % % Eosinophils % % Basophils % % Neutrophils # (1.3-7.7) k/uL Lymphocytes # (1.0-4.8) k/uL Monocytes # (0-1.0) k/uL Eosinophils # (0-0.7) k/uL Basophils # (0-0.2) k/uL Sodium (137-145) mmol/L Potassium (3.5-5.1) mmol/L Chloride (98-107) mmol/L Carbon Dioxide (22-30) mmol/L Anion Gap mmol/L BUN (7-17) mg/dL Creatinine (0.52-1.04) mg/dL Est GFR (CKD-EPI)AfAm (>60 ml/min/1.73 sqM) Est GFR (CKD-EPI)NonAf (>60 ml/min/1.73 sqM) Glucose (74-99) mg/dL Calcium (8.4-10.2) mg/dL Total Bilirubin (0.2-1.3) mg/dL AST (14-36) U/L ALT (4-34) U/L Alkaline Phosphatase (38-126) U/L Troponin I (0.000-0.034) ng/mL C-Reactive Protein 14.6 H (<1.0) mg/dL Total Protein (6.3-8.2) g/dL Albumin (3.5-5.0) g/dL Urine HCG, Qual Not Detected (Not Detectd) Coronavirus (PCR) Not Detected (Not Detectd) 12/02/20 12/02/20 Range/Units 06:04 06:04 WBC 12.7 H (3.8-10.6) k/uL RBC 4.46 (3.80-5.40) m/uL Hgb 13.4 (11.4-16.0) gm/dL Hct 40.5 (34.0-46.0) % MCV 90.6 (80.0-100.0) fL MCH 30.0 (25.0-35.0) pg MCHC 33.0 (31.0-37.0) g/dL RDW 13.2 (11.5-15.5) % Plt Count 506 H (150-450) k/uL MPV 7.1 Neutrophils % 60 % Lymphocytes % 24 % Monocytes % 4 % Eosinophils % 10 % Basophils % 0 % Neutrophils # 7.6 (1.3-7.7) k/uL Lymphocytes # 3.1 (1.0-4.8) k/uL Monocytes # 0.5 (0-1.0) k/uL Eosinophils # 1.3 H (0-0.7) k/uL Basophils # 0.0 (0-0.2) k/uL Sodium 141 (137-145) mmol/L Potassium 4.3 (3.5-5.1) mmol/L Chloride 105 (98-107) mmol/L Carbon Dioxide 27 (22-30) mmol/L Anion Gap 9 mmol/L BUN 10 (7-17) mg/dL Creatinine 0.57 (0.52-1.04) mg/dL Est GFR (CKD-EPI)AfAm >90 (>60 ml/min/1.73 sqM) Est GFR (CKD-EPI)NonAf >90 (>60 ml/min/1.73 sqM) Glucose 99 (74-99) mg/dL Calcium 9.5 (8.4-10.2) mg/dL Total Bilirubin (0.2-1.3) mg/dL AST (14-36) U/L ALT (4-34) U/L Alkaline Phosphatase (38-126) U/L Troponin I (0.000-0.034) ng/mL C-Reactive Protein (<1.0) mg/dL Total Protein (6.3-8.2) g/dL Albumin (3.5-5.0) g/dL Urine HCG, Qual (Not Detectd) Coronavirus (PCR) (Not Detectd) Disposition Clinical Impression: Lung mass, Cough, CAP (community acquired pneumonia) Disposition: ADMITTED IP TO THIS [facility] Condition: Stable Is patient prescribed a controlled substance at d/c from ED?: No Decision to Admit Reason: Admit from EC Decision Date: 12/01/20 Decision Time: 22:41
[2020-12-01] MEDS ORDERED: NALOXONE 0.4 MG/ML 1 ML VIAL IV PRN (22:42)
[2020-12-01] MEDS ORDERED: IBUPROFEN 400 MG TAB PO PRN (22:48)
[2020-12-01] MEDS ORDERED: CEFEPIME 2 GM in SODIUM CHLORIDE 0.9% 100 ML IVPB STA (23:01)
[2020-12-01] MEDS ORDERED: VANCOMYCIN IV PER PHARMACY 1 EACH MISC MISCELLANE PRN (23:01)
[2020-12-02] MEDS ORDERED: VANCOMYCIN 1,750 MG in SODIUM CHLORIDE 0.9% 500 ML 500 ML IVPB ONE ×2
[2020-12-02] MEDS: ACETAMINOPHEN TAB 325 MG TAB PO PRN ×2 (01:37→09:33)
[2020-12-02] MEDS ORDERED: diphenhydrAMINE 25 MG CAP PO STA (06:19)
[2020-12-02 06:54] LABS: Basophils % (A) 0 %; Eosinophils # (A) 1.3 k/uL (0-0.7); Eosinophils % (A) 10 %; HCT 40.5 % (34.0-46.0); HGB 13.4 gm/dL (11.4-16.0); Lymphocytes # (A) 3.1 k/uL (1.0-4.8); Lymphocytes % (A) 24 %; MCV 90.6 fL (80.0-100.0); Mean Platelet Volume 7.1; Monocytes # (A) 0.5 k/uL (0-1.0); Monocytes % (A) 4 %; Neutrophils # (A) 7.6 k/uL (1.3-7.7); Neutrophils % (A) 60 %; Platelet Count 506 k/uL (150-450); RBC 4.46 m/uL (3.80-5.40); RDW 13.2 % (11.5-15.5); WBC 12.7 k/uL (3.8-10.6)
[2020-12-02 07:06] LABS: African American GFR (CKD) >90 (>60 ml/min/1.73 sqM); Anion Gap 9 mmol/L; Blood Urea Nitrogen 10 mg/dL (7-17); Calcium 9.5 mg/dL (8.4-10.2); Carbon Dioxide 27 mmol/L (22-30); Chloride 105 mmol/L (98-107); Glucose 99 mg/dL (74-99); Non-African American GFR(CKD) >90 (>60 ml/min/1.73 sqM); Potassium 4.3 mmol/L (3.5-5.1); Sodium 141 mmol/L (137-145)
[2020-12-02] MEDS ORDERED: VANCOMYCIN 1,500 MG in SODIUM CHLORIDE 0.9% 250 ML IVPB SCH (10:00)
[2020-12-02] MEDS: BENZONATATE 100 MG CAP PO SCH ×3 (11:28→21:30)
[2020-12-02] MEDS: AZITHROMYCIN 500 MG TAB PO SCH (11:28)
--- NOTE | 2020-12-02 13:04 | P.CNPUL ---
History of Present Illness Consult date: 12/02/20 Requesting physician: Alissa Karimi Reason for consult: dyspnea, abnormal CXR/CT Chief complaint: Shortness of breath, cough, congestion History of present illness: This is a very pleasant 35-year-old female patient who follows with Dr. Adair is as her primary care provider. She has no significant medical history. Nonsmoker. Denies any drug use. Proximally 3 weeks ago she started with a dry nonproductive cough. She been trying [id number] Mucinex and Delsym at home without much improvement. She was having episodes of generalized weakness, fatigue and worsening shortness of breath and presented to an urgent care yesterday. Chest x-ray was abnormal and they referred her to the emergency room. Computed tomography scan of the chest was performed and did reveal bilateral patchy areas of airspace disease. Most likely infectious however septic emboli was within the differential. There are coalescent infiltrates that measured up to 3 cm. There is a 6.5 x 3 cm patch of consolidation the right posterior lung base. No cavitation. White count 12.7. Hemoglobin 13.4. Platelets 506. Sodium 141. Potassium 4.3. Bicarb 27. Creatinine 0.57. Urine hCG not detected. Quiñones virus not detected. She has been afebrile. Maintaining good O2 saturations in the upper 90s on room air. She had been initiated on vancomycin and cefepime. She is seen today in consultation on the regular medical floor. She is currently resting comfortably in bed. Awake and alert in no acute distress. Still with a dry nonproductive cough. No fever or chills. No hemoptysis. Review of Systems REVIEW OF SYSTEMS: CONSTITUTIONAL: Generalized weakness, fatigue. Denies any recent significant weight loss or weight gain. EYES: Denies change in vision. EARS, NOSE, MOUTH, THROAT: Denies headaches, denies sore throat. CARDIOVASCULAR: Denies chest pain, palpitations or syncopal episodes. RESPIRATORY: Positive for shortness of breath, cough, congestion no hemoptysis. GASTROINTESTINAL: Denies change in appetite, denies abdominal pain GENITOURINARY: Denies hematuria, denies infections. MUSKULOSKELETAL: Denies pain, denies swelling. INTEGUMENTARY: Denies rash, denies eczema. NEUROLOGICAL: Denies recent memory loss, no recent seizure activity. PSYCHIATRIC: Denies anxiety, denies depression. HEMATOLOGIC/LYMPHATIC: Denies anemia, denies enlarged lymph nodes. Past Medical History Past Medical History: No Reported History Additional Past Medical History / Comment(s): decreased function with gall bladder- gets pain when eatting, knee pain History of Any Multi-Drug Resistant Organisms: None Reported Past Surgical History: Hernia Repair Additional Past Surgical History / Comment(s): EGD,colonoscopy, wisdom teeth Past Anesthesia/Blood Transfusion Reactions: No Reported Reaction Past Psychological History: No Psychological Hx Reported Smoking Status: Never smoker Past Alcohol Use History: Rare Past Drug Use History: None Reported - Past Family History Father Family Medical History: No Reported History Mother Family Medical History: No Reported History Grandparents (maternal & paternal) Family Medical History: Cancer Medications and Allergies Home Medications Medication Instructions Recorded Confirmed Type Multivitamins, Thera [Multivitamin 1 tab PO DAILY 09/15/18 12/01/20 History (formulary)] guaiFENesin [Mucinex] 600 mg PO BID 12/01/20 12/01/20 History Allergies Allergy/AdvReac Type Severity Reaction Status Date / Time No Known Allergies Allergy Verified 12/01/20 22:36 Physical Exam Vitals: Vital Signs Temp Pulse Pulse Resp BP BP Pulse Ox 12/02/20 08:00 72 17 12/02/20 07:00 98.2 F 72 17 127/74 98 12/02/20 02:00 16 12/02/20 00:35 98.7 F 86 16 120/73 99 12/01/20 22:17 98.6 F 86 18 146/83 97 12/01/20 19:33 18 12/01/20 18:10 97.9 F 91 22 154/94 99 Intake and Output 12/01/20 12/02/20 12/02/20 22:59 06:59 14:59 Other: Weight 86.183 kg 86.183 kg GENERAL EXAM: Alert, very pleasant 35-year-old female patient, on room air, fairly comfortable in no apparent distress. HEAD: Normocephalic. EYES: Normal reaction of pupils, equal size. NOSE: Clear with pink turbinates. THROAT: No erythema or exudates. NECK: No masses, no JVD. CHEST: No chest wall deformity. LUNGS: Equal air entry with bilateral scattered rhonchi. CVS: S1 and S2 normal with no audible murmur, regular rhythm. ABDOMEN: No hepatosplenomegaly, normal bowel sounds, no guarding or rigidity. SPINE: No scoliosis or deformity SKIN: No rashes CENTRAL NERVOUS SYSTEM: No focal deficits, tone is normal in all 4 extremities. EXTREMITIES: There is no peripheral edema. No clubbing, no cyanosis. Peripheral pulses are intact. Results - Laboratory Findings CBC and BMP: 12/02/20 06:04 12/02/20 06:04 Abnormal lab findings: Abnormal Labs 12/01/20 12/01/20 12/01/20 19:23 19:23 23:49 WBC 17.3 H Plt Count 482 H Neutrophils # 12.1 H Eosinophils # 1.7 H Glucose 111 H C-Reactive Protein 14.6 H 12/02/20 06:04 WBC 12.7 H Plt Count 506 H Neutrophils # Eosinophils # 1.3 H Glucose C-Reactive Protein - Diagnostic Findings CT scan - chest: image reviewed Assessment and Plan Assessment: 1 Acute community-acquired bilateral pneumonia, COVID-19 screen negative 2 Leukocytosis secondary to above Plan: The patient was seen and evaluated by Dr. Lee CAT scan and labs reviewed Discontinue vancomycin and cefepime Add Rocephin and azithromycin Check pro calcitonin Legionella urine antigen screen Add Chantelle Garcia Follow-up chest x-ray in a.m. We will continue to follow and make further recommendations based on her clinical status I, the cosigning physician, performed a history & physical examination of the patient. Lungs sounds with bilateral rhonchi. Maintaining good O2 saturations in the 90s on room air. I discussed the assessment and plan of care with my nurse practitioner, Megha Shabazz. I attest to the above consultation as dictated by her. Time with Patient: Greater than 30
[2020-12-02] MEDS ORDERED: ALPRAZolam 0.25 MG TAB PO PRN (16:46)
[2020-12-02] MEDS: ALBUTEROL NEBULIZED 2.5 MG/3 ML INHALATION SCH (19:30)
--- NOTE | 2020-12-02 19:46 | HP ---
HISTORY AND PHYSICAL CHIEF COMPLAINTS: Shortness of breath and possible pneumonia. HISTORY OF PRESENT ILLNESS: This 35-year-old woman with a past medical history of multiple medical problems including history of gallbladder dysfunction, history of EGD, colonoscopy, being followed by Dr. Adair in the outpatient setting. The patient apparently had Covid infection pneumonia in February last year. The patient improved significantly, but for the past several days the patient had a cough and some sputum. The patient was taking Mucinex and Delsym at home without any improvement. Patient came to [facility] and found to have bilateral pneumonia which is confirmed by CT scan of the chest, admitted for further evaluation and treatment. Patient started on broad spectrum IV antibiotics and Rocephin and Zithromax. Cultures are pending at this time. The lab work showed white count 17.3 and C-reactive protein is 14.6. D-dimer is not available. Covid 19 repeat testing was negative on multiple occasions according to her. There is no history of fever, rigors or chills at this time. PAST MEDICAL HISTORY: History of recent Covid 19 infection, gallbladder dysfunction, history of knee pains. MEDICATIONS: Home medications are Mucinex and multivitamins. ALLERGIES: None. FAMILY HISTORY: No history of heart disease or strokes in the family. SOCIAL HISTORY: No history of smoking. No history of alcohol. REVIEW OF SYSTEMS: ENT: No diminished vision. No diminished hearing. CARDIOVASCULAR as mentioned earlier. RESPIRATORY: As mentioned earlier. GI: No nausea or vomiting. : No dysuria or hematuria. NERVOUS SYSTEM: No numbness, weakness. ALLERGY/IMMUNOLOGY: No history of asthma or hayfever. MUSCULOSKELETAL: As mentioned earlier. HEMATOLOGY/ONCOLOGY: No history of anemia. ENDOCRINE: No history of diabetes or hypothyroidism. CONSTITUTIONAL: As mentioned earlier. DERMATOLOGY: Negative. RHEUMATOLOGY: Negative. PSYCHIATRIC: As mentioned earlier. PHYSICAL EXAMINATION: Alert and oriented times three. Pulse 84, blood pressure 107/63, respiration 17, temperature 98.2, pulse ox 97% on room air. HEENT is conjunctivae normal. Oral mucosa moist. NECK is no jugular venous distention. No carotid bruit. No lymph node enlargement. CARDIOVASCULAR: S1, S2. No S3, no S4. RESPIRATORY: Breath sounds diminished in the bases. A few scattered rhonchi and crackles. ABDOMEN: Soft, obese, nontender. No mass palpable. LEGS: No edema. No swelling. NERVOUS SYSTEM: Higher functions as mentioned. Moves all four limbs. No focal deficits. LYMPHATICS: No lymph nodes palpable in the neck, axillae or groin. SKIN: No ulcer, rash or bleeding. JOINTS: No active deforming arthropathy. LABS: WBC 12.7, hemoglobin 13.5, platelets 5.5. Chest x-ray and CT scan of the chest personally reviewed. ASSESSMENT: 1. Acute bilateral pneumonia possibly community-acquired possibly gram-negative pneumonia. 2. Increased WBC. 3. Increased platelets. 4. Eosinophilia. 5. Elevated random glucose. 6. Elevated CRP. 7. History of recent COVID-19 infection. 8. History of gallbladder dysfunction. 9. History of hernia repair. 10.Obesity with body mass of 31.6. 11.FULL CODE. RECOMMENDATIONS AND DISCUSSION: This 35-year-old woman who presented with multiple complex medical issues, we will monitor the patient closely. Continue the current medications, symptomatic treatment. The patient is started on Rocephin and Zithromax. We will continue to monitor. Add bronchodilators. Current DVT prophylaxis. Proton pump inhibitors. I would also recommend sputum cultures including a fungal culture. I would also recommend inflammatory markers including D-dimer, also. The prognosis is guarded because of multiple complex medical issues. Further recommendations to follow. A copy of this dictation is being forwarded to Dr. Adair who is the primary physician. We will also recommend testing for mycoplasma and Legionella as well. MMODL / IJN: [id number] /
[2020-12-02 19:53] LABS: C Reactive Protein 5.2 mg/dL (<1.0)
[2020-12-02 20:02] VITALS: RESP 18
[2020-12-02] MEDS: HEPARIN SODIUM,PORCINE/PF 5,000 UNIT/0.5 ML SYRINGE SQ SCH (21:30)
[2020-12-03] MEDS ORDERED: PANTOPRAZOLE 40 MG TABLET PO SCH (07:30)
[2020-12-03] MEDS: ALBUTEROL NEBULIZED 2.5 MG/3 ML INHALATION SCH ×2 (08:10→12:56)
[2020-12-03] MEDS: BENZONATATE 100 MG CAP PO SCH (08:31)
[2020-12-03] MEDS: HEPARIN SODIUM,PORCINE/PF 5,000 UNIT/0.5 ML SYRINGE SQ SCH (08:31)
[2020-12-03] MEDS: AZITHROMYCIN 500 MG TAB PO SCH (08:32)
[2020-12-03] MEDS ORDERED: VANCOMYCIN TROUGH DUE 1 EACH MISC MISCELLANE ONE (09:00)
[2020-12-03 09:01] LABS: Basophils % (A) 0 %; Eosinophils # (A) 0.9 k/uL (0-0.7); Eosinophils % (A) 10 %; HCT 42.1 % (34.0-46.0); HGB 13.9 gm/dL (11.4-16.0); Lymphocytes # (A) 2.2 k/uL (1.0-4.8); Lymphocytes % (A) 24 %; MCH 29.7 pg (25.0-35.0); MCV 90.1 fL (80.0-100.0); Mean Platelet Volume 6.9; Monocytes # (A) 0.3 k/uL (0-1.0); Monocytes % (A) 3 %; Neutrophils # (A) 5.4 k/uL (1.3-7.7); Neutrophils % (A) 60 %; Platelet Count 499 k/uL (150-450); RBC 4.68 m/uL (3.80-5.40); RDW 13.1 % (11.5-15.5); WBC 9.1 k/uL (3.8-10.6)
[2020-12-03 09:16] LABS: African American GFR (CKD) >90 (>60 ml/min/1.73 sqM); Anion Gap 9 mmol/L; Blood Urea Nitrogen 10 mg/dL (7-17); Calcium 9.2 mg/dL (8.4-10.2); Carbon Dioxide 26 mmol/L (22-30); Chloride 103 mmol/L (98-107); Glucose 153 mg/dL (74-99); Non-African American GFR(CKD) >90 (>60 ml/min/1.73 sqM); Potassium 4.1 mmol/L (3.5-5.1); Sodium 138 mmol/L (137-145)
--- NOTE | 2020-12-03 11:49 | P.PN ---
Subjective Progress Note Date: 12/03/20 This is a very pleasant 35-year-old female patient who follows with Dr. Adair is as her primary care provider. She has no significant medical history. Nonsmoker. Denies any drug use. Proximally 3 weeks ago she started with a dry nonproductive cough. She been trying [id number] Mucinex and Delsym at home without much improvement. She was having episodes of generalized weakness, fatigue and worsening shortness of breath and presented to an urgent care yesterday. Chest x-ray was abnormal and they referred her to the emergency room. Computed tomography scan of the chest was performed and did reveal bilateral patchy areas of airspace disease. Most likely infectious however septic emboli was within the differential. There are coalescent infiltrates that measured up to 3 cm. There is a 6.5 x 3 cm patch of consolidation the right posterior lung base. No cavitation. White count 12.7. Hemoglobin 13.4. Platelets 506. Sodium 141. Potassium 4.3. Bicarb 27. Creatinine 0.57. Urine hCG not detected. Quiñones virus not detected. She has been afebrile. Maintaining good O2 saturations in the upper 90s on room air. She had been initiated on vancomycin and cefepime. She is seen today in consultation on the regular medical floor. She is currently resting comfortably in bed. Awake and alert in no acute distress. Still with a dry nonproductive cough. No fever or chills. No hemoptysis. The patient is seen today 12/03/2020 in follow-up on the regular medical floor. She is currently sitting up in bed. Awake and alert in no acute distress. Breathing quite a bit better today compared to yesterday. Feeling nearly back to her baseline. Still with a dry nonproductive cough. Maintaining O2 saturations in the upper 90s on room air. She remains afebrile. Hemodynamical ly stable. A culture reveals no growth. Sputum culture pending. White count 9.1. Hemoglobin 13.9. Sodium 138. Potassium 4.1. Creatinine 0.53. Sodium 138. Potassium 4.1. Creatinine 0.53. Legionella urine antigen negative. She is continued on ceftriaxone and azithromycin. Remains on dilators, Tessalon Perles. Heparin for DVT prophylaxis. Objective - Vital Signs Vital signs: Vital Signs Temp 98.8 F 12/03/20 07:00 Pulse 76 09/05/21 08:20 Resp 18 12/03/20 08:00 BP 139/94 12/03/20 07:00 Pulse Ox 98 12/03/20 07:00 Intake & Output 12/02/20 12/03/20 12/03/20 18:59 06:59 18:59 Intake Total 240 Balance 240 Intake: Oral 240 Other: # Voids 4 2 1 - Exam GENERAL EXAM: Alert, active, very pleasant 35-year-old female, on room air, c omfortable in no apparent distress. HEAD: Normocephalic. EYES: Normal reaction of pupils, equal size. NOSE: Clear with pink turbinates. THROAT: No erythema or exudates. NECK: No masses, no JVD. CHEST: No chest wall deformity. LUNGS: Equal air entry with few scattered rhonchi. CVS: S1 and S2 normal with no audible murmur, regular rhythm. ABDOMEN: No hepatosplenomegaly, normal bowel sounds, no guarding or rigidity. SPINE: No scoliosis or deformity SKIN: No rashes CENTRAL NERVOUS SYSTEM: No focal deficits, tone is normal in all 4 extremities. EXTREMITIES: There is no peripheral edema. No clubbing, no cyanosis. Peripheral pulses are intact. - Labs CBC & Chem 7: 12/03/20 08:38 12/03/20 08:38 Labs: Abnormal Lab Results - Last 24 Hours (Table) 12/02/20 12/02/20 12/03/20 Range/Units 19:25 19:25 08:38 Plt Count 499 H (150-450) k/uL Eosinophils # 0.9 H (0-0.7) k/uL D-Dimer 1.71 H (<0.60) mg/L FEU Glucose (74-99) mg/dL C-Reactive Protein 5.2 H (<1.0) mg/dL 12/03/20 Range/Units 08:38 Plt Count (150-450) k/uL Eosinophils # (0-0.7) k/uL D-Dimer (<0.60) mg/L FEU Glucose 153 H (74-99) mg/dL C-Reactive Protein (<1.0) mg/dL Microbiology - Last 24 Hours (Table) 12/02/20 19:45 Fungal Culture - Preliminary Sputum 12/02/20 19:45 Sputum Culture - Preliminary Sputum 12/01/20 23:49 Blood Culture - Preliminary Blood No Growth after 24 hours Assessment and Plan Assessment: 1 Acute community-acquired bilateral pneumonia, COVID-19 screen negative, Legionella urine antigen negative 2 Leukocytosis secondary to above, recovered Plan: The patient was seen and evaluated by Dr. Lee Cleared for discharge from the pulmonary standpoint Recommend Levaquin 750 mg daily 7 days Follow-up in the office for repeat chest x-ray I, the cosigning physician, performed a history & physical examination of the patient. Lungs sounds with bilateral rhonchi. Maintaining good O2 saturations in the 90s on room air. I discussed the assessment and plan of care with my nurse practitioner, Megha Shabazz. I attest to the above note as dictated by her.
[2020-12-03] MEDS ORDERED: MULTIVITAMINS, THERA 1 EACH TAB PO SCH (12:00)
[2020-12-03 14:38] VITALS: BP 153/83; PULSE 85; TEMP 98
[2020-12-04 11:59] LABS: Ferritin 93.7 ng/mL (10.0-291.0)
[2020-12-05 07:45] LABS: Mycoplasma IgG Antibody (EIA) 1.29 INDEX (<=0.90); Mycoplasma IgM Antibody 0.49 INDEX (<=0.90)
--- NOTE | 2020-12-26 12:38 | P.DS ---
Providers Date of admission: 12/02/20 09:47 Expected date of discharge: 12/03/20 Attending physician: Alissa Karimi Consults: 12/01/20 22:48 Consult Physician Urgent Consulting Provider: José Lee Consult Reason/Comments: multiple pulmonary masses Do you want consulting provider notified?: Yes [facility]: Discharge diagnoses Acute community-acquired pneumonia. COVID-19 and Legionella negative. Leukocytosis secondary above. Hospital course Patient is a 34-year-old female with a known history of GERD, gallbladder dysfunction with recent COVID-19 infection in February last year presents to ER with complaints of cough and sputum production. Patient was taking Mucinex and Delsym at home without improvement. Patient was found to have bilateral pneumonia and CT scan of the chest was shown as well. Patient was started on antibiotics involve ceftriaxone and azithromycin. CRP was 14.6 and WBC 17.3. COVID-19 is negative. 12/03/2020 patient is currently sitting up in the bed. Awake alert in no apparent distress. Breathing is much easier today. Feels that she is back to her baseline. Some dry cough without any sputum production. Currently room air. Patient has been afebrile. Sputum cultures showed Radha. Blood cultures have been negative. Otherwise no chest pain. No nausea vomiting or abdominal pain or diarrhea. Tolerating oral diet. Patient was seen by pulmonary. Recommends to continue with Levaquin to complete his antibiotic course. Patient is being discharged home today. Vital signs: Vital Signs Temp 98.8 F 12/03/20 07:00 Pulse 76 12/03/20 08:20 Resp 18 12/03/20 08:00 BP 139/94 12/03/20 07:00 Pulse Ox 98 12/03/20 07:00 Intake & Output 12/02/20 12/03/20 12/03/20 18:59 06:59 18:59 Intake Total 240 Balance 240 Intake: Oral 240 Other: # Voids 4 2 1 - Exam GENERAL EXAM: Alert, active, very pleasant 35-year-old female, on room air, comfortable in no apparent distress. HEAD: Normocephalic. EYES: Normal reaction of pupils, equal size. NOSE: Clear with pink turbinates. THROAT: No erythema or exudates. NECK: No masses, no JVD. CHEST: No chest wall deformity. LUNGS: Equal air entry with few scattered rhonchi. CVS: S1 and S2 normal with no audible murmur, regular rhythm. ABDOMEN: No hepatosplenomegaly, normal bowel sounds, no guarding or rigidity. SPINE: No scoliosis or deformity SKIN: No rashes CENTRAL NERVOUS SYSTEM: No focal deficits, tone is normal in all 4 extremities. EXTREMITIES: There is no peripheral edema. No clubbing, no cyanosis. Peripheral pulses are intact. Patient Condition at Discharge: Stable Plan - Discharge Summary Discharge Rx Participant: No New Discharge Prescriptions: New levoFLOXacin 750 mg PO DAILY 7 Days #7 tab Continue Multivitamins, Thera [Multivitamin (formulary)] 1 tab PO DAILY guaiFENesin [Mucinex] 600 mg PO BID Discharge Medication List Multivitamins, Thera [Multivitamin (formulary)] 1 tab PO DAILY 09/15/18 [History] guaiFENesin [Mucinex] 600 mg PO BID 12/01/20 [History] levoFLOXacin 750 mg PO DAILY 7 Days #7 tab 12/03/20 [Rx] Follow up Appointment(s)/Referral(s): Kimberlyn Adair III, MD [Primary Care Provider] - 1-2 days José Lee DO [Doctor of Osteopathic Medicine] - 1 Week (follow up and repeat chest xray. ) Discharge Disposition: HOME SELF-CARE
== END 2020-12-03 15:49 | disposition home or self-care (01) ==
LOC: EC 16:33 → 6NMEDSUR 22:42 → OBSVTOIN 12-02 09:47 → INTOOBSV 12-02 09:47 → UNDODISIN 12-03 15:49
PROVIDERS: ADMIT Hospitalist; ATTEND Hospitalist
DX: B37.1 Pulmonary candidiasis (principal); D72.10 Eosinophilia, unspecified; D47.3 Essential (hemorrhagic) thrombocythemia; R79.82 Elevated C-reactive protein (CRP); R73.02 Impaired glucose tolerance (oral); E66.9 Obesity, unspecified; Z68.31 Body mass index [BMI] 31.0-31.9, adult; Z86.16 Personal history of COVID-19; K21.9 Gastro-esophageal reflux disease without esophagitis; K82.8 Other specified diseases of gallbladder; M25.569 Pain in unspecified knee; Z20.822 Contact with and (suspected) exposure to COVID-19; Z87.19 Personal history of other diseases of the digestive system; Z87.01 Personal history of pneumonia (recurrent); Z98.890 Other specified postprocedural states; Z80.9 Family history of malignant neoplasm, unspecified
CPT/HCPCS: 96365; 96366 ×2; 96372 ×2; 96368; 99285; 36415; 94640 ×3; 93005; 85379; 86738 ×2; 80053; 80048 ×2; 87449; 82728; 82565; 83615; 84484; 85025 ×3; 80202; 86140; 81025; 87040; 87070; 87205; 87102; 84145; 87635; 71260; G0378 ×3; J3370; J0696 ×2; J0692; Q9967; J1644 ×2